=== PATIENT | female | born 1970 | race Native Hawaiian/Other Pacific Islander ===

== ENCOUNTER 2017-05-18 13:01 | Outpatient (CLI) | payer BC ==
[~2017-05-18 13:01] MED LIST: ACET7.5T70 PO; AMOX500C85 PO; HYDR25TA60 PO; NAPROSYN500 MG OR; PHENTERMINE37.5 M1 OR
[2017-05-18 13:54] LABS: PLATELET COUNT 368 K/uL (152-353)
[2017-05-18 13:56] LABS: POTASSIUM 3.2 mmol/L (3.6-5.2); SODIUM 135 mmol/L (136-145)
== END 2017-05-18 19:16 | disposition home or self-care (01) ==
LOC: LABW 13:01
PROVIDERS: Family Medicine
DX: R07.89 Other chest pain (principal); R51 Headache; Z82.41 Family history of sudden cardiac death
CPT/HCPCS: 36415; 80053; 80061; 81000; 82550; 83735; 84439; 84443; 84484; 85027; 85610